=== PATIENT | female | born 2000 | race Caucasian/White ===

== ENCOUNTER 2020-01-04 15:58 | Emergency (ER) | payer MEDICAID, SELFPAY ==
[2020-01-04 16:09] VITALS: BP 129/86; PULSE 94; RESP 18; TEMP 37.3; O2SAT 96
--- NOTE | 2020-01-04 16:23 | ED.GENADUL_ITS ---
Discharge Plan Disposition Patient Disposition: HOME Condition: Good Discharge Details Chief Complaint: HeadInjury Clinical Impression: Concussion Primary Care Provider: Marie,Local ED Provider: Carolin De La Garza Discharge Instructions Instructions: Concussion (ED) Additional Instructions: Encourage hydration. Tylenol and/or Ibuprofen as needed for discomfort. Your exam and history is concerning for concussion. Please encourage brain rest. Please avoid screens including phones, TV and computers as much as possible. Please avoid physical exertion. I would like for you to follow-up with primary care next week for reevaluation. Referral for local primary care has been placed. If he develop increased pain, fever/chills, weakness, or other new/worsening symptoms please seek care urgently once again. Stand Alone Forms: Work Release Discharge Data Discharge Date/Time-TO BE ENTERED AT DEPARTURE: 01/04/20 16:50 Medical Decision Making <COLT Ricks - Last Filed: 01/04/20 18:34> Patient is a pleasant 19-year-old female without significant past medical history presenting today with chief complaint of headache. She reports that yesterday she was standing next to a wall playing with friends. She reports that she quickly moves her head backwards and struck her head against the wall. She reports that later in the evening she then accidentally struck her head with her fist. She states that since that time, she has been having headaches. She reports feeling slow. States that she has been having difficulty with concentration and some vague memory complaints. She denies LOC. No nausea or vomiting. She denies other injury at the time of the incident. She denies using any blood thinners. She reports that yesterday after the initial incident she had double vision. She is denying this currently. On exam, patient is resting comfortably. I see no visible or palpable evidence of trauma. Her neuro exam is intact. She appears to be in no acute distress. Patient I discussed differential diagnosis. As the patient has no evidence of abnormal neurologic exam, no evidence of trauma and a low mechanism of injury, at very low suspicion for intracranial hemorrhage. She denied did discuss imaging. Based on her exam, history and risk factors, I do not feel that this is warranted. And I did discuss this and she does agree with this assessment. However, as she has had persistent headache since the incident, I did advise that she may have a concussion. She states that she has had multiple concussions historically. We did discuss concussion care. In particular, I advised avoidance of screens, I encouraged water intake. Will Tylenol and ibuprofen while here as she has not had anything for her discomfort. We discussed avoidance of physical exertion until symptoms have resolved. Patient does not have a local primary care and I have asked that care management reach out to them to help establish primary care and follow-up next week. Patient was given return precautions. All of her questions and concerns were addressed and she is in agreement with this plan. <Dino Gray MD - Last Filed: 01/23/20 20:16> Patient seen, examined, and discussed with COLT De La Garza. I agree with treatment plan as discussed/documented. HPI <COLT Ricks - Last Filed: 01/04/20 18:34> General Mode of arrival: ambulatory . Date/Time Provider Initiated Documentation: 01/04/20 16:13 . Limitations to Documentation: no limitations . Information obtained by: patient and RN notes reviewed . History of Present Illness 19 year old F presents to the emergency department with the chief complaint of Head injury, described as moderate, Quality is described as aching, and is localized to the head. Patient reports no radiation. Patient started experiencing this day(s) (1) and it has been constant. No relieving factors improve symptom(s), No exacerbating factors reported . Patient notes no other symptoms.. Patient did receive the following treatments prior to arrival, none General Stated Complaint: HeadInjury TAMERA: 3 Review of Systems <COLT Ricks - Last Filed: 01/04/20 18:34> Constitutional Constitutional: Reports as per HPI, Denies chills, Reports fatigue, Denies fever(s), Denies frequent falls, Reports headache(s), Denies snoring and Denies weakness Eyes Eyes: Reports as per HPI, Denies blurry vision, Denies change in vision and Reports photophobia ENT Ears, Nose, Mouth, and Throat: Denies vertigo, Reports headache(s) and Denies neck pain Cardiovascular Cardiovascular: Reports as per HPI, Denies chest pain, Denies lightheadedness, Denies radiating jaw, neck or arm pain, Denies dyspnea and Denies dyspnea on exertion Respiratory Respiratory: Reports as per HPI, Denies chest congestion, Denies cough, Denies dyspnea, Denies dyspnea on exertion, Denies snoring, Denies stridor and Denies wheezing Gastrointestinal Gastrointestinal: Reports as per HPI, Denies abdominal pain, Denies change in bowel habits, Denies nausea and Denies vomiting Musculoskeletal Musculoskeletal: Reports as per HPI, Denies back pain, Denies myalgias, Denies muscle cramps, Denies neck pain and Denies numbness Integumentary/Breasts Skin/Breast: Reports as per HPI and Denies rash Neurologic Neurologic: Reports as per HPI, Denies abnormal movements, Denies abnormal speech, Denies behavioral changes, Denies confusion, Denies vertigo, Denies frequent falls, Reports headache(s), Denies localized weakness, Denies numbness, Denies sensory deficit and Denies weakness Psychiatric Psychiatric: Denies behavioral changes and Denies confusion Endocrine Endocrine: Reports fatigue Allergic/Immunologic Allergic/Immunologic: Denies wheezing PFSH <COLT Ricks - Last Filed: 01/04/20 18:34> Social History Smoking/Tobacco Use Status: Never Alcohol Intake: never Drug use: Never Substance use type: does not use Do you feel safe at home: Yes Do you feel safe in your relationship?: Yes Exam <COLT Ricks - Last Filed: 01/04/20 18:34> Const General: cooperative, healthy appearing, comfortable, no acute distress, well developed and well groomed Nutritional Appearance: well nourished and overweight Orientation: alert, awake and oriented x3 HENMT Head: normal to inspection, no palpable skull fracture, normocephalic and atraumatic Ears: hearing grossly normal bilaterally, external ears normal and TM's normal bilaterally General nose exam: external nose normal Mouth: oral mucosae normal and moist mucous membranes Throat: posterior oropharynx normal Eyes General: appearance normal, both eyes and all related structures Alignment and Position: alignment normal Periorbital: periorbital findings normal Eyelids: eyelids normal Sclera: sclerae normal Cornea: corneas normal Pupils: PERRL EOM: EOM intact bilaterally Neck Neck: normal visual inspection, full ROM, no lymphadenopathy and no meningeal signs Resp Effort & Inspection: normal respiratory effort, able to speak in complete sentences and no respiratory distress Auscultation: clear to auscultation bilaterally, no rales, no rhonchi and no wheezes Cardio Rate: regular rate Rhythm: regular rhythm Heart Sounds: S1 normal and S2 normal GI Inspection: normal to inspection and non-distended Palpation: soft, no hepatosplenomegaly, not firm, no guarding, not rigid and nontender Percussion: normal to percussion Auscultation: normal bowel sounds Back/Spine/Pelvis Cervical Spine: normal cervical lordosis and cervical ROM normal Skin General skin exam: no rashes or lesions noted Neuro General: patient alert, patient awake and patient oriented x3 Cranial Nerves: CN's II-XI intact bilaterally Cognition: normal cognition Speech: speech normal Gait: normal gait Motor: muscle tone normal throughout, strength 5/5 throughout, no pronator drift , no movement abnormalities noted and no fasciculations Sensory Exam: no sensory deficits noted Coordination: [id number]-[id number] test normal, boap-ob-jwiw test normal, Romberg test normal, Does not sway with eyes open and rapid alternating movement UE normal Extrem General: normal to inspection, capillary refill normal, no pedal edema and no calf tenderness Psych Appearance: grossly normal and well kempt Mental Status: mental status grossly normal Speech and Movement: speech and movement normal Course <COLT Ricks - Last Filed: 01/04/20 18:34> Vital Signs Vital signs: Vital Signs Temperature 37.3 C 01/04/20 16:09 Pulse 94 H 01/04/20 16:09 Respiratory Rate 18 01/04/20 16:09 Blood Pressure 129/86 01/04/20 16:09 Pulse Oximetry 96 01/04/20 16:09 Temperature 37.3 C 01/04/20 16:09 Temperature Source Skin 01/04/20 16:09 Pulse 94 H 01/04/20 16:09 Respiratory Rate 18 01/04/20 16:09 Respiratory Effort Non-Labored 01/04/20 16:18 Respiratory Depth Normal 01/04/20 16:18 Respiratory Pattern Normal 01/04/20 16:18 Blood Pressure 129/86 01/04/20 16:09 Blood Pressure Position Sitting 01/04/20 16:09 Pulse Oximetry 96 01/04/20 16:09 Oxygen Delivery Method Room Air 01/04/20 16:09 Oxygen Flow Rate 0 01/04/20 16:09
[2020-01-04] MEDS: Ibuprofen 600 MG TAB PO (16:27)
[2020-01-04] MEDS: Acetaminophen 500 MG TAB 1000 MG PO (16:28)
[2020-01-04 16:47] VITALS: BP 129/86; PULSE 94; RESP 18; TEMP 37.3; O2SAT 96
--- NOTE | 2020-01-07 10:04 | PDOC.ERCMPRO ---
- If Service Date Differs Date of service: 01/07/20 Time of Service: 10:04 Care Management Progress Note At request of ED provider, CM coordinates a referral to [facility] to assist Debra in establishing care with PCP.
== END 2020-01-04 16:50 | disposition home or self-care (01) ==
PROVIDERS: Emergency Provider Physician Assistant
DX: S06.0X0A Concussion without loss of consciousness, initial encounter (principal); W22.01XA Walked into wall, initial encounter
CPT/HCPCS: 99282

== ENCOUNTER 2020-03-30 15:22 | Emergency (ER) | payer MEDICAID, SELFPAY ==
[2020-03-30 15:34] VITALS: BP 106/76; PULSE 85; RESP 16; O2SAT 96
[2020-03-30 16:09] LABS: Abs Immature Grans 0.01 10^3/uL (0.0-0.06); Absolute Basophil Count 0.04 10^3/uL (0.0-0.2); Absolute Eosinophil Count 0.25 10^3/uL (0.0-0.7); Absolute Lymphocyte Count 1.85 10^3/uL (1.2-3.4); Absolute Monocyte Count 0.65 10^3/uL (0.1-0.8); Absolute Neutrophil Count 4.66 10^3/uL (1.2-6.7); Basophils % 0.5; Eosinophils % 3.4; HCT 41.7 % (36.0-46.0); HGB 14.2 g/dL (11.2-15.7); Immature Grans % 0.1; Lymphocytes % 24.8; MCH 29.8 pg (27.0-33.0); MCHC 34.1 % (32.0-36.0); MCV 87.4 fL (80-95); Monocytes % 8.7; Neutrophils % 62.5; Nucleated RBC 0 %; Platelet Count 277 10^3/uL (130-400); RBC 4.77 10^6/uL (3.93-5.22); RDW 11.7 % (11.7-14.6); RDW-SD 37.8 fL; WBC 7.46 10^3/uL (4.4-10.8)
[2020-03-30] MEDS: Normal Saline 1,000 ML 1000 ML IV (16:12)
[2020-03-30 16:22] LABS: ALT 23 U/L (14-59); AST 14 U/L (15-37); Albumin 4.5 g/dL (3.4-5.0); Alkaline Phosphatase 63 U/L (46-116); Anion Gap 9.3 mmol/L (3-11); BUN 13 mg/dL (7-18); Bilirubin, Total 0.7 mg/dL (0.2-1.0); CO2 26.7 mmol/L (21.0-32.0); CREATININE 0.78 mg/dL (0.55-1.02); Calcium 9.1 mg/dL (8.5-10.1); Chloride 102 mmol/L (98-107); Glucose 99 mg/dL (74-106); Potassium 3.7 mmol/L (3.5-5.1); Sodium 138 mmol/L (136-145); Total Protein 8.1 g/dL (6.4-8.2)
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
[2020-03-30 17:03] VITALS: BP 115/70; PULSE 80; RESP 16; O2SAT 97
== END 2020-03-30 17:03 | disposition home or self-care (01) ==
PROVIDERS: Registered Nurse Emergency; Emergency Provider Student in an Organized Health Care Education/Training Program
DX: S09.8XXA Other specified injuries of head, initial encounter (principal); W22.09XA Striking against other stationary object, initial encounter
CPT/HCPCS: 80053; 81025; 99282; 85025